=== PATIENT | female | born 1980 | race Caucasian/White ===

== ENCOUNTER → 2023-07-07 09:54 | Outpatient (REF) | payer OTHER, SELFPAY | LOC: RAD 09:54 | PROVIDERS: ATTENDING PHYSICIAN Physician Assistant; FAMILY PHYSICIAN Family Medicine | DX: M17.12 Unilateral primary osteoarthritis, left knee (principal); S69.92XA Unspecified injury of left wrist, hand and finger(s), initial encounter | CPT/HCPCS: 73130; 73564 ==

== ENCOUNTER 2024-02-10 03:49 | Observation (INO) | payer OTHER, SELFPAY ==
[2024-02-09 21:18] VITALS: BP 130/79
[2024-02-09 21:45] VITALS: BMI 26.1
[2024-02-09 22:08] LABS: % Basophils 0.4 % (0-2); % Eosinophils 0.4 % (0-6); % Immature Granulocytes 0.4 % (0-0.5); % Lymphocytes 5.1 % (20.5-51.1); % Monocytes 3.9 % (1.7-9.3); % Neutrophils 89.8 % (42.2-75.2); Absolute Basophils 0.1 10^3/uL (0-0.2); Absolute Eosinophils 0.1 10^3/uL (0-0.7); Absolute Immature Granulocytes 0.1 10^3/uL (0-0.05); Absolute Lymphocytes 0.9 10^3/uL (1.2-3.4); Absolute Monocytes 0.7 10^3/uL (0.1-0.6); Absolute Neutrophils 15.4 10^3/uL (1.4-6.5); Hematocrit 38.1 % (37.0-47.0); Hemoglobin 13.7 g/dL (12.0-16.0); Mean Corpuscular Hgb 31.9 pg (27.0-31.0); Mean Corpuscular Volume 88.6 fL (81.0-99.0); Mean Platelet Volume 9.5 fL (7.4-10.4); Nucleated Red Blood Cells % 0 %; Platelet Count 183 10^3/uL (130-400); Red Cell Dist. Width 12.7 % (11.5-14.5); White Blood Cell Count 17.1 10^3/uL (4.8-10.8)
[2024-02-09 22:12] VITALS: BP 123/62
[2024-02-09] MEDS: COMPAZINE 10 MG IV (22:39)
--- NOTE | 2024-02-09 22:41 | ED.GENMED ---
History of Present Illness
General
Chief Complaint: Abdominal Symptoms
Source: patient and ambulance crew
Exam Limitations: none
Time Seen by Provider: 02/09/24 22:20
Nursing documentation reviewed up to this point in time: agreed with
History of Present Illness
History of Present Illness:
This is a 43-year-old woman who complains of intractable nausea and vomiting that began around 6 PM tonight. She has prior history of IV drug abuse has been clean and sober for 16 years, maintained on methadone. She does admit to spilling a small
amount of her methadone today otherwise has been compliant with daily dosing. She admits to intermittent crampy generalized abdominal pain. Has been vomiting small amounts of yellowish bilious liquid. No hematemesis. No diarrhea or constipation.
She admits to chills but does not believe she has had a fever.
No close contacts with similar symptoms. No recent travel nor recent antibiotic use.
She was has a seminar today and is unsure if she has food poisoning.
Upon review of records, similar episode of intractable nausea and vomiting requiring an overnight hospitalization April 2016. That episode was thought to be a viral gastroenteritis in nature.
She denies risk of . Has had tubal ligation.
Arrives via EMS. Was given IV Zofran 4 mg prehospital.
Past History
Past History
ED Past Medical History: Psychiatric (depression, substance abuse) and Other (Hepatitis C)
ED Past Surgical History: Gynecological (Tubal ligation) and Orthopedic (Left knee arthroscopy)
Social History
Tobacco: Smoker
Alcohol: None
Drug: Former user (IV drug abuse, Sober for the past 16 years, maintained on methadone) and Narcotics
Personal: Single
Living: with family
Employment: Employed
Family History
Family History: Other (Noncontributory)
Phy Exam
Physical Exam
Physical Exam:
GENERAL: 43-year-old woman appears her stated age, appears in moderate distress, holding emesis basin at the ready. Somewhat fatigued in appearance.
EYE: pupils equal and reactive. anicteric
NECK: Supple, nontender, no meningismus, no significant adenopathy.
ENT: oral mucosa is minimally dry. No rhinorrhea.
CARDIAC: Regular rate and rhythm. no murmur.
LUNGS: Clear breath sounds bilaterally, no acute respiratory distress, no wheezes/rales/rhonchi
ABDOMEN: Soft, nondistended, mild generalized tenderness, no r/g, no cvat. Mildly hyperactive bowel sounds.
NEUROLOGICAL: Alert and oriented x3, no focal neuro deficits.
SKIN: Warm and dry, normal color, skin intact. No rash.
MUSCULOSKELETAL: No C/C/E. peripheral pulses are full and equal b/l. No palpable tenderness.
PSYCH: Normal and appropriate interaction.
Course
Orders/Labs/Results
Orders:
Orders
02/09/24 21:31
IV Insert/Care/Rem.- Treatment PRN
Straight cath- Treatment ONCE
Test Result ONCE
02/09/24 21:54
Complete Blood Count/With Diff Urgent
02/09/24 22:26
Urine Drug Abuse Screen Urgent
Date Specimen was Collected: 02/10/24
Time Specimen was Collected: 00:40
02/09/24 22:32
0.9% Sodium Chloride 1000 ml [Nss] 1,000 ml IV BOLUS
Diphenhydramine [Benadryl] 50 mg IV NOW STA
Ketorolac [Toradol] 30 mg IV NOW STA
Pantoprazole [Protonix IV] 40 mg IV NOW STA
Prochlorperazine [Compazine] 10 mg IV NOW STA
02/09/24 22:37
Comprehensive Metabolic Panel Urgent
HCG, Serum Qualitative Screen Urgent
Lactic Acid Urgent
02/09/24 23:30
Urinalysis Reflex To Culture Urgent
Date Specimen was Collected: 02/09/24
Time Specimen was Collected: 21:31
02/10/24 00:09
Lactated Ringers [Lr] 1,000 ml IV BOLUS
02/10/24 00:41
Fentanyl, Urine Urgent
Urine Microscopic Reflex Cult Urgent
02/10/24 01:16
0.9% Sodium Chloride 1000 ml [Nss] 1,000 ml IV 500 mls/hr
02/10/24 01:17
CT Abd/pelvis W Iv Cont Urgent
Comment:
Reason For Exam: gen abd pain, N/V, WBC 17
Abnormal Lab Results
02/09/24 02/09/24 02/10/24
21:54 22:37 00:41
WBC 17.1 H 10^3/uL
(4.8-10.8)
MCH 31.9 H pg
(27.0-31.0)
Abs Immat Gran (auto) 0.1 H 10^3/uL
(0-0.05)
Absolute Neuts (auto) 15.4 H 10^3/uL
(1.4-6.5)
Absolute Lymphs (auto) 0.9 L 10^3/uL
(1.2-3.4)
Absolute Monos (auto) 0.7 H 10^3/uL
(0.1-0.6)
Neutrophils % 89.8 H %
(42.2-75.2)
Lymphocytes % 5.1 L %
(20.5-51.1)
Glucose 158 H mg/dl
(70-99)
Urine Ketones Trace A
(Negative)
Urine Bilirubin 1+ A
(Negative)
Leukocyte Esterase Rfl Trace A
(Negative)
Urine Bacteria (Reflex) Few A
(Negative)
Urine Methadone Screen Positive H
(Negative)
02/09/24 21:54
02/09/24 22:37
Vital Signs
Initial and Last Documented VS:
Initial Vital Signs
Pulse Resp BP Pulse Ox
55 20 130/79 97
02/09/24 21:18 02/09/24 21:18 02/09/24 21:18 02/09/24 21:18
Last Documented Vital Signs
Temp Pulse Resp BP Pulse Ox
98.3 F 71 9 100/75 97
02/09/24 22:15 02/10/24 02:19 02/10/24 02:19 02/10/24 02:19 02/10/24 01:45
MDM/Problems Addressed
Differential Diagnosis Includes:
Concern for acute gastroenteritis either foodborne versus viral, concern for small bowel obstruction, pancreatitis, cholecystitis, acute dehydration/acute kidney injury, electrolyte abnormality.
Will initiate IV fluid resuscitation as well as IV Compazine for nausea accompanied with Benadryl.
Will consider imaging depending on clinical course.
She does have history of IV drug abuse/long-term recovery, maintained on methadone. Reports spilling a small amount of her methadone today. Methadone has a very long half-life, acute withdrawal syndrome is unlikely.
Opioid withdrawal could be considered if diversion was an issue however no prior history of diversion. Nonetheless we will check UDS.
Chronic conditions affecting care: Psychiatric illness (Methadone maintenance.) and Other (History of hepatitis C, untreated. Likely not contributing factor)
*Pulse Oximetry
Patient hypoxic: no
*Coat Baster Interpretation
Rate: normal
Interpretation: normal
Rhythm: sinus
*Critical Care Note
Total Time (30-74mins, 75-104mins- exclusive of procedures): Not Applicable
Update Note
Update Note:
02/10/2024 0118 AM
Vomiting has subsided after IV Compazine.
Blood pressure somewhat soft at 80 systolic, has improved to 90 systolic after 2 L of IV fluids. She remains afebrile.
Abdominal pain has improved, she does continue with mild abdominal discomfort, generalized and although nausea has resolved she continues with significant anorexia, hesitant for oral fluid challenge.
Labs show significantly elevated white blood cell count of 17. Similar elevation noted during overnight hospitalization for somewhat similar event 2017. Chemistries are otherwise unremarkable. Lactic acid is normal. hCG is negative as expected.
Urinalysis is unremarkable.
UDS positive for methadone as expected.
Due to mild hypotension we will continue IV fluids and will check CT abdomen pelvis.
02/10/2024 0239 AM
Hypotension has improved, systolic blood pressure now 100. She remains afebrile.
No recurrent vomiting but continues with some nausea and resistant for oral fluid challenge.
CAT scan pending.
Do to intractable nausea, inability to tolerate oral fluids, elevated WBC patient will require continued IV fluid support, continued antiemetics thus will admit to hospitalist service.
ED Attending Note
-
Portions of this chart may have been created with voice recognition software.� Occasional wrong word or��sound alike� substitutions may have occurred due to the inherent limitations of voice recognition software.
Discharge Plan
Departure
Patient Disposition: Admit
Date of Disposition: 02/10/24
Time of Disposition: 02:40
Admit to: Med/Surg
Admit to doctor: Stephanie
Presentation/result/management discussed w/ accepting MD/DO: Hospitalist
Condition: Fair
Discharge Problem:
Intractable nausea and vomiting, acute leukocytosis
Prescriptions:
No Action
methadone 10 MG tablet
200 mg PO DAILY
Referrals:
Bossman Cox MD [Family Provider] -
Interventions
Interventions:
*Risk Screen - Suicide Last Done: 02/09/24 21:18
*General Assessment Last Done: 02/09/24 21:18
*Neglect/Abuse Screening Last Done: 02/09/24 21:18
ED- Fall Risk Assessment Last Done: 02/09/24 21:18
*ED COVID-19 Vaccine History Last Done: 02/09/24 21:18
GA-Txtdex-Ppidoceqrz Assessment Last Done: 02/09/24 21:46
Discharge Date and Time
Print Language: CAMBODIAN
[2024-02-09] MEDS: TORADOL 30 MG IV (22:42)
[2024-02-09] MEDS: PROTONIX IV 40 MG IV (22:42)
[2024-02-09] MEDS: BENADRYL 50 MG IV (22:43)
[2024-02-09] MEDS: NSS 1000 IV (22:45)
[2024-02-09 22:56] LABS: HCG, Serum Qualitative Screen Negative
[2024-02-09 22:57] LABS: Lactic Acid 1.6 mmol/L (0.7-2.0)
[2024-02-09 22:58] LABS: ALT (SGPT) 18 U/L (0-35); AST (SGOT) 20 U/L (14-36); Albumin 4.3 g/dl (3.5-5.0); Alkaline Phosphatase 54 U/L (38-126); Blood Urea Nitrogen 17 mg/dl (7-17); Calcium 9.3 mg/dl (8.4-10.2); Carbon Dioxide 27 mmol/L (22-30); Chloride 102 mmol/L (98-107); Estimated Creatinine Clearance 88 ml/min; Glucose 158 mg/dl (70-99); Potassium 4.4 mmol/L (3.5-5.1); Sodium 138 mmol/L (135-145); Total Bilirubin 0.4 mg/dl (0.2-1.3); Total Protein 6.9 g/dl (6.3-8.2); eGFR > 60.00
[2024-02-09 23:00] VITALS: BP 110/58
[2024-02-10] VITALS (11 sets, daily range): BP systolic 87–115; BP diastolic 48–75; BMI 25.2
[2024-02-10] MEDS: LR 1000 IV ×5 (00:10→18:15)
[2024-02-10 01:03] LABS: Urine Albumin Negative (Neg - Trace); Urine Bilirubin 1+ (Negative); Urine Character Clear (Clear); Urine Color Yellow; Urine Glucose Negative (Negative); Urine Ketone Trace (Negative); Urine Leukocyte Trace (Negative); Urine Nitrite Negative (Negative); Urine Occult Blood Negative (Negative); Urine Urobilinogen Negative (Neg - 1+)
[2024-02-10 01:08] LABS: Amphetamines Negative (Negative); Barbiturates Negative (Negative); Benzodiazepines Negative (Negative); Buprenorphine Negative (Negative); Cocaine Negative (Negative); Marijuana Negative (Negative); Methadone Positive (Negative); Methamphetamines Negative (Negative); Opiates Negative (Negative); Phencyclidine Negative (Negative); Tricyclic Antidepressants Negative (Negative)
[2024-02-10 01:14] LABS: Urine Squamous Cell >30 /LPF (Few)
[2024-02-10 01:15] LABS: Urine Bacteria Few (Negative); Urine Red Blood Cell 0-2 /HPF (0-2); Urine White Cell 0-2 /HPF (0-5)
[2024-02-10 01:22] LABS: Fentanyl, Urine Negative (Negative)
[2024-02-10] MEDS: NSS 1000 IV (01:22)
--- NOTE | 2024-02-10 03:17 | HPS.HSE ---
Family Physician
-
Family Physician: Bossman Cox
Chief Complaint
-
Intractable nausea and vomiting
History of Present Illness
This is a 43-year-old female with past medical history significant for opioid abuse and dependence currently on methadone who presents to the emergency department with a 1 day history of nausea and vomiting.
Patient reported that she had otherwise been in usual state of health up until onset of symptoms. She went to [place] for a conference and upon returning later in the evening she started having vomiting. It was nonbloody and nonbilious. She
denied having diarrhea. She reports mild abdominal discomfort. She denies having lightheadedness or dizziness. She has not had any fevers or chills. Patient reported that she last took methadone the previous morning. She denies any alcohol use.
She denies cannabis use. No obvious sick contacts at home. She denies any prior intra-abdominal surgeries.
In the emergency department the patient was afebrile, blood pressure was 100/75 with a pulse of 71 and she was at 97% on room air. He had leukocytosis to 17,000 hemoglobin of 13.7 and platelet count of 07/02/1964 which is unchanged. LFTs were within
normal limits. Bili electrolytes BUN/creatinine and glucose were all within normal limits. UA was unremarkable. She had a CT of the abdomen and pelvis which showed moderate amount of colonic neck stool consistent with constipation but otherwise
unremarkable.
Medical History
Past Medical History
Past Medical History: Reports Other
Additional Past Medical History:
Opioid dependence
Past Surgical History: Reports None
Social History
Tobacco: Smoker (1/2 pack/day)
Alcohol: None
Drug: Former User and Other (On methadone)
Personal:
Living: With Family
Employment: Not Employed
Family History
Family History: Not pertinent
Allergies / Home Medications
Allergies reflects when Allergies were last updated in [facility].
Home Medications with original date entered in [facility]
Allergy/Medication List:
Allergies
Allergy/AdvReac Type Severity Reaction Status Date / Time
No Known Allergies Allergy Verified 02/09/24 21:17
Home Medications
methadone 10 mg tablet 200 mg PO DAILY 05/05/14
Review of Systems
-
History Source: Patient
Constitutional: Reports No Symptoms
EENT: Reports No Symptoms
Respiratory: Reports No Symptoms
Cardiac: Reports No Symptoms
Abdomen/GI: Reports Nausea and Vomiting
: Reports No Symptoms
Musculoskeletal: Reports No Symptoms
Skin: Reports No Symptoms
Neurological: Reports No Symptoms
Endocrine: Reports No Symptoms
Hematologic/Lymphatic: Reports No Symptoms
Psych: Reports No Symptoms
Physical Exam
Vital Signs
Vital Signs
Temp Pulse Resp BP Pulse Ox
98.3 F 73 16 100/64 95
02/09/24 22:15 02/10/24 03:00 02/10/24 03:00 02/10/24 03:00 02/10/24 03:00
Physical Exam
General: Well Developed and Well Nourished
HEENT: NormoCephalic, Anicteric, Atraumatic and PERRLA
Respiratory: Clear
Cardiac: S1/S2 and Regular Rhythm
GI: Soft, Non Distended, Normal Bowel Sounds and Flat
Rectal: Deferred by Provider
Genito-urinary: Deferred by me
Musculoskeletal: No Clubbing, No Cyanosis and No Edema
Skin: Warm
Neuro: AO x 3
Hematologic/Lymphatic: No Lymphadenopathy
Psych: Calm
Laboratory Results
-
02/09/24 21:54
02/09/24 22:37
Laboratory Results
Lactic Acid 1.6 mmol/L (0.7-2.0) 02/09/24 22:37
Total Bilirubin 0.4 mg/dl (0.2-1.3) 11/08/24 22:37
AST 20 U/L (14-36) 02/09/24 22:37
ALT 18 U/L (0-35) 02/09/24 22:37
Alkaline Phosphatase 54 U/L (38-126) 02/09/24 22:37
Lipase Cancelled 02/09/24 21:54
Data Reviewed
-
CT Scan: Report Reviewed by me
Lab Data: Labs Reviewed by me
Old Records: Reviewed
Impression/Plan
-
IMPRESSION:
43 female with one day of intractable nausea and vomiting. Normal labs and u/a. CTAP normal except for some constipation. Urine drug screen with methadone only.
PLAN:
1. Nausea and vomiting - Intractable suspect viral gastritis vs food poisoning. no diarrhea. No melena, no hematemesis
- admit to med/surg obs
- iv fluids and antiemetics
- pepcid iv q 12
- advance diet as tolerated
- unlikely withdrawal and patient taking her methadone regularly, ecg for qt
- orthostatic vs
DVT PPX - lovenox sq
Code Status - full code
--- NOTE | 2024-02-10 05:26 | PTCARENOTE ---
Pt. admitted from E.D., AAO x 3, pt. ambulated from stretcher to bed, call rosado within reach.
[2024-02-10 07:13] LABS: Hematocrit 33.5 % (37.0-47.0); Hemoglobin 11.6 g/dL (12.0-16.0); Mean Corp Hgb Conc. 34.6 g/dL (33.0-37.0); Mean Corpuscular Hgb 32.3 pg (27.0-31.0); Mean Corpuscular Volume 93.3 fL (81.0-99.0); Platelet Count 175 10^3/uL (130-400); Red Blood Cell Count 3.59 10^6/uL (4.20-5.40); Red Cell Dist. Width 12.5 % (11.5-14.5); White Blood Cell Count 9.5 10^3/uL (4.8-10.8)
[2024-02-10 07:39] LABS: Blood Urea Nitrogen 16 mg/dl (7-17); Calcium 7.9 mg/dl (8.4-10.2); Carbon Dioxide 23 mmol/L (22-30); Chloride 107 mmol/L (98-107); Estimated Creatinine Clearance 102 ml/min; Glucose 82 mg/dl (70-99); Potassium 3.8 mmol/L (3.5-5.1); Sodium 140 mmol/L (135-145); eGFR > 60.00
[2024-02-10] MEDS: NSS (PRESERVATIVE FREE) 8 ML IV ×2 (08:42→20:47)
[2024-02-10] MEDS: PEPCID 20 MG IV ×2 (08:43→20:47)
--- NOTE | 2024-02-10 10:38 | CM ---
CM met with pt bedside
Pt resides with her spouse and two children 12 & 15 y/o
They reside in a [address] with [address], full flight to 2nd floor
Pt is indep with her ADLs and denies use of DMEs
Pt maintained on methadone and managed through [facility]
Pt noted financial difficulties with food
Declined findhelp resources- noted she is vegetarian and local resources not helpful
They manage and make do
PCP- Bossman Cox
Rx- [facility]
Pt is OBS- OBS form completed verbally
Copy provided
DC order noted- anticipate dc later today pending toleration of diet
Discharge Disposition- home no needs anticipated- friend will transport home
[2024-02-10] MEDS: METHADONE 100 MG/10 ML 173 MG PO (11:52)
[2024-02-10] MEDS: LOVENOX 40 MG SC (17:41)
--- NOTE | 2024-02-10 17:59 | PTCARENOTE ---
Pt was lethargic during the day and was not able to stay awake, BP was checked pt BP was 88/52 at 1500 and 88/50 at 1530.pt was awake alert and oriented, just very drowsy. Dr. Surendra Garcia was made aware of situation as he had d/c orders for today if
patient tolerated her diet. pt was falling asleep and was not eating. was ordered to give 1 liter Bolus of Lactated Ringers then to resume LR at 125/hr per Dr. Stephan Garcia. BP just rechecked. pt now at 111/68 pulse 72. pt is asymptomatic
[2024-02-11] MEDS: LR 1000 IV (03:23)
[2024-02-11 07:00] VITALS: BP 114/71
[2024-02-11] MEDS: PEPCID 20 MG IV (08:07)
[2024-02-11] MEDS: NSS (PRESERVATIVE FREE) 8 ML IV (08:08)
[2024-02-11] MEDS: METHADONE 100 MG/10 ML 173 MG PO (08:10)
--- NOTE | 2024-02-11 09:13 | W.PN.HOSP.TC ---
Today's Communication/Plan
-
dc home
More than 30 minutes spent in discharge including
Final examination of the patient
Summarizing hospital stay
Instructions for continuing care to all relevant caregivers
Preparation of discharge records, prescriptions, and referral forms
Total time spent (in minutes): 36mins
Assessment / Plan
Assessment / Plan
Imaging
CTAP
IMPRESSION:
1. Moderate fecal retention suggestive of constipation. No evidence of mechanical intestinal obstruction or bowel inflammatory process.
2. No evidence of nephrolithiasis, hydronephrosis, cholecystitis, or abscess formation.
Physical Exam
NAD, resting comfortably in bed
Scleral anicteric
Moist mucous membranes
No JVD
CTA bilateral
Normal S1-S2 no murmurs
Soft nontender nondistended bowel sounds active
No peripheral pitting edema
Moves extremities spontaneously
AAOx3
Assessment and Plan
Viral gastroenteritis
-Improving
-Discontinue IV fluids
-As needed antiemetics
-Tolerating diet well
-Plan to discharge home
Opioid use disorder
-Continue methadone outpatient follow-up
Age-appropriate cancer screening
Cleared for dc home
Anticipated Discharge: Today
Subjective/Interval History
-
Date of Service: February 11, 2024
Seen and examined. Feeling much better. Tolerating diet. No further nausea or vomiting.
States that she has not rested more than 3 weeks. Believes that she is stressed tired because she needs to catch up on sleep rest.
States that she can have a ride at the hospital by 1030. Hopes that her did all the dishes.
Objective Data
-
Vital Signs:
Vital Signs
Temp Pulse Resp BP Pulse Ox
98.4 F 60 18 114/71 96
02/11/24 07:00 02/11/24 07:00 02/11/24 07:00 02/11/24 07:00 02/11/24 07:00
I&O
02/10/24 02/11/24 02/12/24
06:59 06:59 06:59
Intake Total 660 / 660
Balance 660 / 660
--- NOTE | 2024-02-11 09:16 | W.DCSUMMARY ---
Discharge Summary
Discharge Data
Date of Admission: 02/10/24
Date of Discharge: 02/11/24
-
Pending Results: No
Hospital Course
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 Noted to have a white count of 17.1. Continued to have nausea vomiting failed p.o. trial therefore admitted for
IV fluids. Had a CT abdomen pelvis completed in the ED which demonstrated moderate fecal retention suggestive of constipation. No evidence of mechanical intestinal obstruction or bowel inflammation. Provided additional antiemetics with improvement
in symptoms able to tolerate diet. Suspect viral gastroenteritis and will need to follow-up with outpatient PCP. Additionally outpatient GI follow-up for age-appropriate colonoscopy.
CTAP
IMPRESSION:
1. Moderate fecal retention suggestive of constipation. No evidence of mechanical intestinal obstruction or bowel inflammatory process.
2. No evidence of nephrolithiasis, hydronephrosis, cholecystitis, or abscess formation.
Discharge Plan
-
Patient Disposition: Home (Routine Discharge)
Discharge Diagnosis/Procedures: Viral gastroenteritis
Condition: Fair
Diet: As tolerated
Activity: As tolerated
Driving Restrictions: As prior to admission
Activity Restrictions/Additional Instructions:
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 Noted to have a white count of 17.1. Continued to have nausea vomiting failed p.o. trial therefore admitted for IV fluids. Had a CT abdomen
pelvis completed in the ED which demonstrated moderate fecal retention suggestive of constipation. No evidence of mechanical intestinal obstruction or bowel inflammation. Provided additional antiemetics with improvement in symptoms able to
tolerate diet. Suspect viral gastroenteritis and will need to follow-up with outpatient PCP. Additionally outpatient GI follow-up for age-appropriate colonoscopy.
CTAP
IMPRESSION:
1. Moderate fecal retention suggestive of constipation. No evidence of mechanical intestinal obstruction or bowel inflammatory process.
2. No evidence of nephrolithiasis, hydronephrosis, cholecystitis, or abscess formation.
Instructions: Viral gastroenteritis in adults
Referrals:
Bossman Cox MD [Family Provider] -
Prescriptions:
No Action
methadone 10 mg/mL Concentrate
173 mg PO DAILY
Discharge Orders:
Discharge Patient (As Directed); Ordered 02/11/24
Ordered By: Stephan Garcia
Discharge Date and Time
Print Language: MAURITANIAN
== END 2024-02-11 11:27 | disposition home or self-care (01) ==
LOC: 4 WEST ACU 03:49
PROVIDERS: ADMITTING PHYSICIAN Internal Medicine; ATTENDING PHYSICIAN Hospitalist; EMERGENCY PHYSICIAN Emergency Medicine; FAMILY PHYSICIAN Family Medicine
DX: A08.4 Viral intestinal infection, unspecified (principal); R10.9 Unspecified abdominal pain; R11.2 Nausea with vomiting, unspecified; F11.20 Opioid dependence, uncomplicated; F32.A Depression, unspecified; D72.829 Elevated white blood cell count, unspecified; I95.9 Hypotension, unspecified; F17.210 Nicotine dependence, cigarettes, uncomplicated; K59.00 Constipation, unspecified; I49.8 Other specified cardiac arrhythmias; Z98.51 Tubal ligation status; Z86.19 Personal history of other infectious and parasitic diseases
CPT/HCPCS: 74177; 80048; 80053; 80306; 80307; 81003; 81015; 83605; 84703; 85025; 85027; 87070; 93005; 96361; 96374; 96375; 99285; 99406; G0378; Q9967